=== PATIENT | female | born 1940 | race Two or more races ===

== ENCOUNTER 2024-07-04 09:49 | Emergency (ER) | payer MEDICARE, OTHER ==
[~2024-07-04] VITALS: Ht 154.9 cm; Wt 94.2 kg
--- NOTE | 2024-07-04 10:23 | ED.PDOC ---
GI ASSESSMENT HPI Comments 83 year old female presents to the ED with a chief complaint of na usea/vomiting/diarrhea onset 3 days. Patient states she began experiencing nausea, vomiting, diarrhea, poor appetite 3 days ago, has resolved today. Patient came to ED due to fear of eating, due to not eating past 3 days due to symptoms. Denies any current complaints. Denies any PMHx as well as chest pain, shortness of breath, abdominal pain, dizziness, headache, fever, chills, dy suria. No other symptoms or modifying factors present at this time. Chief Complaint: Nausea/Vomiting Time Seen by MD: 10:12 Reviewed Notes: Medications, Allergies Allergies: Coded Allergies: NO KNOWN ALLERGIES (Unverified , 07/04/24) Information Source: Patient Mode of Arrival: Ambulatory Timing: Days Duration: Since onset Prehospital treatment: None Quality: None Severity: Moderate Recent: None Recent Hx of: None Pain Location: None Modifying Factors: Nothing Associated sign and symptoms: Nausea, Vomiting, Diarrhea Past Medical History PAST MEDICAL HISTORY: Denies Surgical History: Denies all surgeries JACKSCREW MAN History: No Pertinent JACKSCREW MAN History Family History Family History: Reviewed,noncontributory to illness, No family hx of Cancer, No family hx of DM, No family hx of Heart efren, No family hx of HTN, No family hx ofKidney efren, No family hx of Liver efren, No family hx of Lung efren, No family hx of Stroke Social History Smoker: Non-Smoker Alcohol: Denies ETOH Use Drugs: Denies Drug Use Lives In: Home Constitutional: denies: chills, diaphoresis, fatigue, fever, malaise, sweats, weakness, others EENTM: denies: blurred vision, double vision, ear bleeding, ear discharge, ear drainage, ear pain, ear ringing, eye pain, eye redness, hearing loss, mouth pain, mouth swelling, nasal discharge, nose bleeding, nose congestion, nose pain, photophobia, tearing, throat pain, throat swelling, voice changes, others Respiratory: denies: cough, hemoptysis, orthopnea, SOB at rest, shortness of breath, SOB with excertion, stridor, wheezing, others Cardiovascular: denies: chest pain, dizzy spells, diaphoresis, Dyspnea on exertion, edema, irregular heart beat, left arm pain, lightheadedness, palpitations, PND, syncope, others Gastrointestinal: reports: diarrhea, nausea, vomiting; denies: abdomen distended, abdominal pain, blood streaked bowels, constipated, dysphagia, difficulty swallowing, hematemesis, melena, poor appetite, poor fluid intake, rectal bleeding, rectal pain, others Genitourinary: denies: abnormal vagina bleeding, burning, dyspareunia, dysuria, flank pain, frequency, hematuria, incontinence, pain, , vagina discharge, urgency, others Neurological: denies: dizziness, fainting, headache, left sided numbness, left sided weakness, numbness, paresthesia, pre-existing deficit, right sided numbness, right sided weakness, seizure, speech problems, tingling, tremors, weakness, others Musculoskeletal: denies: back pain, gout, joint pain, joint swelling, muscle pain, muscle stiffness, neck pain, others Integumetry: denies: bruises, change in color, change in hair/nails, dryness, laceration, lesions, lumps, rash, wounds, others Allergic/Immunocompromised: denies: Difficulty Healing, Frequent Infections, Hives, Itching, others Hematologic/Lymphatic: denies: anemia, blood clots, easy bleeding, easy bruising, swollen glands, others Endocrine: denies: excessive hunger, excessive sweating, excessive thirst, excessive urination, flushing, intolerance to cold, intolerance to heat, unexplained weight gain, unexplained weight loss, others Psychiatric: denies: anxiety, bipolar disorder, depression, hopeless, panic disorder, schizophrenia, sleepless, suicidal, others All Other Systems: Reviewed and Negative Physical Exam General Appearance: No Apparent Distress, Normal HEENT: Normal ENT Inspection, Pharynx Normal, TMs Normal Neck: Full Range of Motion, Non-Tender, Normal, Normal Inspection Respiratory: Chest Non-Tender, Lungs Clear, No Accessory Muscle Use, No Respiratory Distress, Normal Breath Sounds Cardiovascular: No Edema, No JVD, No Murmur, No Gallop, Normal Peripheral Pulses, Regular Rate/Rhythm Breast Exam: Deferred Gastrointestinal: No Organomegaly, Non Tender, No Pulsatile Mass, Normal Bowel Sounds, Soft Genitalia: Deferred Pelvic: Deferred Rectal: Deferred Extremities: No calf tenderness, Normal capillary refill, Normal inspection, Normal range of motion, Non-tender, No pedal edema Musculoskeletal : Apperance: Normal Neurologic: Alert, account receivable clerk II-XII nml as Tested, No Motor Deficits, Normal Affect, Normal Mood, No Sensory Deficits Cerebellar Function: Normal Reflexes: Normal Skin: Dry, Normal Color, Warm Lymphatic: No Adenopathy Was a procedure done? Was a procedure done?: No GI differential Dx Differential Diagnosis: Constipation, Gastroenteritis, Bacterial, Viral, Impaction Other Differential Diagnosis anxiety X-Ray, Labs, Meds, VS Vital Signs Date Time Temp Pulse Resp B/P (MAP) Pulse Ox O2 Delivery O2 Flow Rate FiO2 07/04/24 10:44 98.6 82 22 135/54 (81) 95 98.6 07/04/24 10:44 82 22 95 Room Air 07/04/24 10:06 98.5 89 19 150/60 (90) 96 98.5 Lab Test 07/04/24 10:04 Range/Units POC Glucose 106 70-106 mg/dl Current Medications Medications (Trade) Dose Ordered Sig/Angelo Route Start Time Stop Time Status Last Admin Ondansetron HCl (Zofran Po) 4 mg ONCE ONCE PO 07/04/24 10:15 07/04/24 10:16 DC 07/04/24 10:50 Time of 1ST Reevaluation: 10:42 Reevaluation 1ST: Unchanged Time of 2ND Reevaluation: 11:52 Reevaluation 2ND: Improved Patient Education/Counseling: Diagnosis, Treatment, Prognosis, Need For Follow Up Family Education/Counseling: Diagnosis, Treatment, Prognosis, Need For Follow Up Additional Information pt was worried and scared to eat, due to vomiting and diarrhea, which resolved. she was able to keep down the zofran and reports that she is hungry. she ate a sandwich, without problems and is stable for discharge Departure 1 Departure Time of Disposition: 11:53 Impression: Primary Impression: Feared condition not demonstrated Disposition: 01 HOME / SELF CARE / HOMELESS Condition: Good e-Prescriptions Ondansetron Odt 4MG Tab (ZOFRAN PO) 4 Mg Tb 4 MG PO Q12HP PRN for 2 Days, #4 TAB ODT TAB-DISSOLVE IN MOUTH, THEN SWALLOW Prov: OSWALD VILLALOBOS MD 07/04/24 Discharged With: Self, Spouse Critical Care Note Critical Care Time?: No Stability Stability form required: No I personally scribed for OSWALD VILLALOBOS MD ([email or web address]) on 07/04/24 at 10:23. Electronically submitted by Fina Bermeo ([email or web address]). OSWALD VILLALOBOS MD Jul 04, 2024 10:23
[2024-07-04 10:44] VITALS: BP 135/54; PULSE 82; RESP 22; TEMP 98.6; O2SAT 95
[2024-07-04] MEDS: ONDANSETRON ODT 4 MG TAB PO ONE (10:50)
[2024-07-04] MEDS ORDERED: ZOFR4T PO (11:54)
[2024-07-04 12:19] LABS: Urine Bacteria FEW /hpf (None Seen); Urine Blood Negative /uL (Negative); Urine Color Light-Yellow (Yellow); Urine Protein, UAD Negative (Negative); Urine Specific Gravity 1.009 (1.001-1.035); Urine Squamous Epithelial Cell FEW /hpf (<5); Urine Urobilinogen Normal (Negative); Urine WBC 15 /HPF (0-5)
[2024-07-04 12:20] LABS: Urine Clarity Hazy (Clear)
== END 2024-07-04 12:24 | disposition home or self-care (01) ==
LOC: ER 09:49
DX: Z71.1 Person with feared health complaint in whom no diagnosis is made (principal); R11.2 Nausea with vomiting, unspecified; R19.7 Diarrhea, unspecified
CPT/HCPCS: 81001; 82947; 99283; Q0162; 82962